=== PATIENT | female | born 1995 | race Caucasian/White ===

== ENCOUNTER → 2020-02-14 | Outpatient (CLI) | payer OTHER ==
[~2020-02-14] MED LIST: PROHANCE 279.3MG/ML 15ML VIAL (A9576) As Ordered ONE; PROHANCE 279.3MG/ML 5ML VIAL (A9576) As Ordered ONE
--- NOTE | 2020-02-15 11:08 | REPVR ---
PROCEDURE INFORMATION: Exam: MR Lumbar Spine Without and With Contrast. 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 Contrast material: PROHANCE; Contrast volume: 20 ml; Contrast route: 22; COMPARISON: MRI L-SPINE W/O CONTRAST - OUTSIDE PRIOR 02/08/2020 1:39 PM FINDINGS: Vertebrae: There is no fracture or listhesis. Normal vertebral body alignment and heights are preserved. Marrow signal are within normal limits. Spinal cord: Conus medullaris terminates at T12/L1. There is an ovoid 12 x 6 mm intradural extramedullary focus within the posterior aspect of the canal demonstrating diffuse enhancement. L1-L2: No significant disc disease. No significant spinal canal stenosis. No neural foraminal stenosis. L2-L3: No significant disc disease. No significant spinal canal stenosis. No neural foraminal stenosis. L3-L4: No significant disc disease. No significant spinal canal stenosis. No neural foraminal stenosis. L4-L5: No significant disc disease. No significant spinal canal stenosis. No neural foraminal stenosis. L5-S1: There is shallow disc bulging with an annular fissure. There is mild facet hypertrophy. The spinal canal and neural foramina are patent. Soft tissues: Unremarkable. 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 Differential considerations include myxopapillary ependymoma, schwannoma and meningioma. Electronically signed by: Mary Kay Allen On 02/15/2020 11:07:54 AM
== END ==
LOC: M RAD 16:32
PROVIDERS: ATTEND Family Medicine
DX: M54.5 Low back pain (principal)

== ENCOUNTER 2020-09-12 12:59 | Emergency (ER) | payer OTHER ==
[~2020-09-12] VITALS: Ht 182.9 cm; Wt 114.6 kg
[2020-09-12 14:06] LABS: BASO % 0.6 % (0.0-1.0); EOS # 0.7 10^3/uL (0.0-0.5); EOS % 9.1 % (0.0-3.0); HEMATOCRIT 44.1 % (36.0-47.0); HEMOGLOBIN 14.7 g/dl (12.0-15.5); LYMPH # 2.4 10^3/uL (1.5-5.0); MEAN CORPUSCULAR HEMOGLOBIN 28.3 pg (27.0-33.0); MEAN CORPUSCULAR HGB CONC 33.3 g/dl (32.0-36.5); MEAN CORPUSCULAR VOLUME 84.8 fl (80.0-96.0); MONO # 0.4 10^3/uL (0.0-0.8); MONO % 5.6 % (0.0-5.0); NEUTROPHILS # 3.7 10^3/uL (1.5-8.5); NEUTROPHILS % 51.4 % (36.0-66.0); PLATELET COUNT, AUTOMATED 269 10^3/uL (150-450); WHITE BLOOD COUNT 7.2 10^3/uL (4.0-10.0)
[2020-09-12 14:35] LABS: BLOOD UREA NITROGEN 13 MG/DL (7-18); CALCIUM LEVEL 9.1 MG/DL (8.5-10.1); CARBON DIOXIDE LEVEL 24 MEQ/L (21-32); CHLORIDE LEVEL 111 MEQ/L (98-107); CREATININE FOR GFR 0.73 MG/DL (0.55-1.30); GLOMERULAR FILTRATION RATE > 60.0 (>60); GLUCOSE, FASTING 114 MG/DL (70-100); POTASSIUM SERUM 4.4 MEQ/L (3.5-5.1); SODIUM LEVEL 140 MEQ/L (136-145)
[2020-09-12 14:36] LABS: HCG, SERUM QUALITATIVE NEGATIVE (NEGATIVE)
[2020-09-12] MEDS ORDERED: NS 1,000 ML IV ONE (14:45)
--- NOTE | 2020-09-12 16:09 | REP ---
INDICATION: heavy vaginal bleeding, left sided pelvic pain. COMPARISON: None. TECHNIQUE: Transabdominal and transvaginal scanning performed. FINDINGS: Uterine dimensions are 7.4 x 3.2 x 4.5 cm. Endometrial echo is 4 mm in AP dimension and centrally placed. There is very mild complex fluid in the endometrial canal. The bladder measures 7.4 x 5.3 x 7.8 centimeters. The right ovary has dimensions of 3.4 x 2.0 x 2.1 cm. It's Doppler flow is normal with a resistive index of 0.66. The left ovary dimensions are 3.0 x 1.7 x 2.4 cm. It's Doppler flow was normal with resistive index of 0.71. There is no adnexal mass identified. No free fluid is seen in the cul-de-sac. IMPRESSION: Very mild complex fluid in the endometrial canal. Endometrial thickness 4 mm. No adnexal mass or free fluid. No evidence of ovarian torsion. <Electronically signed by Ameya Garcia > 09/12/20 [id number]
[2020-09-12] MEDS ORDERED: KETOROLAC 30 MG/ML 1ML VIAL IV ONE (16:30)
[2020-09-12 16:49] VITALS: BP 137/76
--- NOTE | 2020-09-14 09:44 | ED PDOC ---
Post-Departure Follow-Up ft [facility] faxed formal report of pelvic us for fu Ander Diaz MD Sep 14, 2020 09:44
== END 2020-09-12 16:58 | disposition home or self-care (01) ==
LOC: M ED 12:59
DX: N92.0 Excessive and frequent menstruation with regular cycle (principal); F31.9 Bipolar disorder, unspecified
CPT/HCPCS: 36415; 76830; 76856; 80048; 81001; 84703; 85025; 86850; 86900; 86901; 93976; 96361; 96374; 99284; J1885